=== PATIENT | female | born 1960 | race Caucasian/White ===

== ENCOUNTER 2016-08-01 15:25 | Emergency (ER) | payer OTHER ==
[~2016-08-01] VITALS: Ht 152.4 cm; Wt 59.0 kg
[~2016-08-01 15:25] MED LIST: KLONOPIN0.5 MG PO; SERTRALINE HCL50 MG PO
[2016-08-01 15:26] VITALS: BP 118/71
[2016-08-01] MEDS ORDERED: NORFLEX100 MG PO (15:55)
[2016-08-01] MEDS ORDERED: NORCO 10-325 T1 EACH PO (15:55)
[2016-08-01] MEDS ORDERED: ZANAFLEX4 MG PO (16:03)
[2016-08-01] MEDS ORDERED: TRAZODONE HCL50 MG PO (16:28)
[2016-08-01] MEDS ORDERED: HYDROCODON-ACE1 EAC8 PO (16:28)
== END 2016-08-01 16:15 | disposition home or self-care (01) ==
LOC: ER 15:25
DX: S09.90XA Unspecified injury of head, initial encounter (principal); F32.9 Major depressive disorder, single episode, unspecified; F41.9 Anxiety disorder, unspecified; F17.210 Nicotine dependence, cigarettes, uncomplicated; W22.8XXA Striking against or struck by other objects, initial encounter; Y93.89 Activity, other specified; Y92.003 Bedroom of unspecified non-institutional (private) residence as the place of occurrence of the external cause; Y99.8 Other external cause status